=== PATIENT | female | born 1940 | race Caucasian/White ===

== ENCOUNTER 2021-04-07 16:28 | Inpatient (IN) | payer OTHER ==
[~2021-04-07] VITALS: Ht 157.5 cm; Wt 72.6 kg
[~2021-04-07 16:28] MED LIST: ASPI-1197 PO; BENA5TAB40 PO; CHOL200074 PO; METF-444 PO; NAPR-1192 PO; OMEG300C3 PO; OXYB5TAB15 PO; PRAV40TA3 PO; TRAM300C3 PO
[2021-04-07 17:01] LABS: APPEARANCE,URINE Cloudy (CLEAR); BILIRUBIN,URINE Negative (NEGATIVE); COLOR,URINE Yellow (YELLOW); GLUCOSE, URINE (UA) >=1000 mg/dL (NEGATIVE); KETONES,URINE 15 mg/dL (NEGATIVE); LEUKOCYTE ESTERASE ,URINE Moderate (NEGATIVE); NITRATE,URINE Positive (NEGATIVE); OCCULT BLOOD,URINE Moderate (NEGATIVE); PH,URINE 5.5 (5.0-8.0); PROTEIN,URINE Trace mg/dL (NEGATIVE); UROBILINOGEN,URINE 0.2 mg/dL (0.2-1.0)
[2021-04-07 17:16] LABS: BASOPHILS % (AUTO) 0.3 % (0.0-5.0); EOSINOPHILS % (AUTO) 1.3 % (0.0-8.0); HEMATOCRIT 38.5 % (36-48); LYMPHOCYTES % (AUTO) 6.2 % (21.0-51.0); MEAN CORPUSCULAR HEMOGLOBIN 26.8 pg (27.0-33.0); MEAN CORPUSCULAR HGB CONC 31.4 g/dL (32.0-36.0); MEAN CORPUSCULAR VOLUME 85.4 fL (79-99); MONOCYTES % (AUTO) 0.7 % (3.0-13.0); NEUTROPHILS % (AUTO) 90.1 % (40.0-77.0); PLATELET COUNT (AUTO) 361 K/uL (130-400); RED BLOOD CELL COUNT(AUTO) 4.51 MIL/uL (4.00-5.50); RED CELL DISTRIBUTION WIDTH 15.2 % (11.0-15.5); WHITE BLOOD COUNT (AUTO) 8.6 K/uL (4.8-10.8)
[2021-04-07 17:37] LABS: CREATININE 1.5 mg/dL (0.5-1.5); POTASSIUM 3.4 mmol/L (3.5-5.1)
[2021-04-07 17:45] LABS: BACTERIA,URINE Few /HPF (None Seen); SQUAMOUS EPITHELIAL CELL,UR Rare /HPF (0-2); WBC,URINE 26-50 /HPF (0-1)
[2021-04-07 17:46] LABS: ALBUMIN 3.1 g/dL (3.5-5.0); BILIRUBIN,TOTAL 0.7 mg/dL (0.2-1.0); TOTAL PROTEIN, SERUM 7.9 g/dL (6.0-8.3)
[2021-04-07] MEDS ORDERED: ONDANSETRON 4MG INJ IVP ONE (18:30)
[2021-04-07] MEDS ORDERED: CEFTRIAXONE 1G VIAL IVP ONE (18:30)
[2021-04-07] MEDS ORDERED: MORPHINE 4 MG SYG IV PRN (18:30)
[2021-04-07] MEDS ORDERED: 0.9%NACL 50ML 50 ML IV ONE (18:45)
[2021-04-07] MEDS ORDERED: ACETAMINOPHEN 325 MG TAB PO ONE (21:30)
[2021-04-07] MEDS ORDERED: ACETAMINOPHEN 325 MG TAB PO PRN (21:30)
[2021-04-07] MEDS ORDERED: MORPHINE 2 MG SYG IVP PRN (21:30)
[2021-04-07] MEDS ORDERED: ONDANSETRON 4MG INJ IVP PRN (21:30)
[2021-04-07] MEDS ORDERED: ZOSYN 3.375GM+NS 50ML 3.38 GM in 0.9%NACL 50ML 50 ML IV SCH (21:30)
[2021-04-07] MEDS: ZOSYN 3.375GM +NS 50ML IV SCH (21:50)
[2021-04-08] MEDS: MORPHINE 2 MG SYG IVP PRN ×2 (00:13→07:21)
[2021-04-08 04:08] LABS: BASOPHILS % (AUTO) 0.2 % (0.0-5.0); EOSINOPHILS % (AUTO) 2.1 % (0.0-8.0); HEMATOCRIT 35.2 % (36-48); LYMPHOCYTES % (AUTO) 5.3 % (21.0-51.0); MEAN CORPUSCULAR HEMOGLOBIN 26.8 pg (27.0-33.0); MEAN CORPUSCULAR HGB CONC 31.8 g/dL (32.0-36.0); MEAN CORPUSCULAR VOLUME 84.2 fL (79-99); MONOCYTES % (AUTO) 4.1 % (3.0-13.0); NEUTROPHILS % (AUTO) 87.5 % (40.0-77.0); NUCLEATED RED BLOOD CELLS 0.1 % (0.0-0.19); PLATELET COUNT (AUTO) 347 K/uL (130-400); RED BLOOD CELL COUNT(AUTO) 4.18 MIL/uL (4.00-5.50); RED CELL DISTRIBUTION WIDTH 15.4 % (11.0-15.5)
[2021-04-08 04:20] LABS: CREATININE 1.7 mg/dL (0.5-1.5); MAGNESIUM 1.5 mg/dL (1.80-2.40); POTASSIUM 4.4 mmol/L (3.5-5.1)
[2021-04-08] MEDS: INSULIN HUMULIN R 100 UNIT/ML 3ML SQ SCH ×4 (06:46→19:56)
[2021-04-08] MEDS ORDERED: 0.9%NACL 50ML 50 ML IV ONE (07:07)
[2021-04-08] MEDS: ONDANSETRON 4MG INJ IVP PRN ×2 (07:21→18:07)
[2021-04-08] MEDS ORDERED: INSULIN HUMULIN R 100 UNIT/ML 3ML SQ SCH (07:30)
[2021-04-08] MEDS ORDERED: MAGNESIUM 2GM PREMIX 50ML 50 ML IV PRN (08:00)
[2021-04-08] MEDS ORDERED: ENOXAPARIN SODIUM 30 MG/0.3 ML SQ SCH (09:00)
[2021-04-08] MEDS: ZOSYN 3.375GM +NS 50ML IV SCH ×2 (09:29→19:45)
[2021-04-08] MEDS: ENOXAPARIN SODIUM 30 MG/0.3 ML SQ SCH (10:44)
[2021-04-08] MEDS: KETOROLAC 15MG/ML VIAL (15MG/ML) IV SCH (10:45)
[2021-04-08 15:32] VITALS: BP 109/48
[2021-04-08 18:00] VITALS: BP 89/42
[2021-04-08 18:27] VITALS: BP 92/44
[2021-04-08] MEDS ORDERED: 0.9%NACL 1000ML 1,000 ML IV SCH (18:30)
[2021-04-08 19:58] VITALS: BP 110/62
[2021-04-08] MEDS: 0.9%NACL 1000ML 1,000 ML IV SCH (21:44)
[2021-04-08 23:57] VITALS: BP 104/45
[2021-04-09] MEDS: ONDANSETRON 4MG INJ IVP PRN (03:13)
[2021-04-09] MEDS: MORPHINE 2 MG SYG IVP PRN ×2 (03:16→14:04)
[2021-04-09 03:24] VITALS: BP 125/91
[2021-04-09 05:08] LABS: HEMATOCRIT 35.1 % (36-48); MEAN CORPUSCULAR HEMOGLOBIN 26.4 pg (27.0-33.0); MEAN CORPUSCULAR HGB CONC 30.5 g/dL (32.0-36.0); MEAN CORPUSCULAR VOLUME 86.7 fL (79-99); PLATELET COUNT (AUTO) 333 K/uL (130-400); RED BLOOD CELL COUNT(AUTO) 4.05 MIL/uL (4.00-5.50); RED CELL DISTRIBUTION WIDTH 15.6 % (11.0-15.5); WHITE BLOOD COUNT (AUTO) 13.6 K/uL (4.8-10.8)
[2021-04-09 05:44] LABS: CREATININE 1.6 mg/dL (0.5-1.5)
[2021-04-09] MEDS: 0.9%NACL 1000ML 1,000 ML IV SCH ×2 (06:16→15:39)
[2021-04-09 06:23] LABS: CREATININE 1.6 mg/dL (0.5-1.5); POTASSIUM 3.8 mmol/L (3.5-5.1)
[2021-04-09] MEDS: INSULIN HUMULIN R 100 UNIT/ML 3ML SQ SCH ×4 (06:48→20:00)
[2021-04-09 07:15] VITALS: BP 103/51
[2021-04-09] MEDS: ZOSYN 3.375GM +NS 50ML IV SCH ×2 (08:35→20:00)
[2021-04-09] MEDS: ENOXAPARIN SODIUM 30 MG/0.3 ML SQ SCH (08:35)
[2021-04-09] MEDS: KETOROLAC 15MG/ML VIAL (15MG/ML) IV SCH (11:00)
[2021-04-09 11:15] VITALS: BP 103/44
[2021-04-09 15:15] VITALS: BP 113/44
[2021-04-09 19:46] VITALS: BP 107/47
[2021-04-09 23:21] VITALS: BP 118/56
[2021-04-10] MEDS: 0.9%NACL 1000ML 1,000 ML IV SCH ×3 (01:17→22:20)
[2021-04-10 03:50] VITALS: BP 103/48
[2021-04-10 05:10] LABS: HEMATOCRIT 27.8 % (36-48); MEAN CORPUSCULAR HEMOGLOBIN 26.8 pg (27.0-33.0); MEAN CORPUSCULAR HGB CONC 31.3 g/dL (32.0-36.0); MEAN CORPUSCULAR VOLUME 85.5 fL (79-99); RED BLOOD CELL COUNT(AUTO) 3.25 MIL/uL (4.00-5.50); RED CELL DISTRIBUTION WIDTH 15.7 % (11.0-15.5); WHITE BLOOD COUNT (AUTO) 9.4 K/uL (4.8-10.8)
[2021-04-10 05:27] LABS: ALBUMIN 1.8 g/dL (3.5-5.0); BILIRUBIN,TOTAL 0.3 mg/dL (0.2-1.0); CREATININE 1.6 mg/dL (0.5-1.5); MAGNESIUM 1.8 mg/dL (1.80-2.40); POTASSIUM 3.9 mmol/L (3.5-5.1); TOTAL PROTEIN, SERUM 5.7 g/dL (6.0-8.3)
[2021-04-10] MEDS: INSULIN HUMULIN R 100 UNIT/ML 3ML SQ SCH ×4 (06:46→20:11)
[2021-04-10 07:15] VITALS: BP 148/76
[2021-04-10] MEDS: ACETAMINOPHEN 325 MG TAB PO PRN ×2 (07:35→14:59)
[2021-04-10] MEDS: ENOXAPARIN SODIUM 30 MG/0.3 ML SQ SCH (07:35)
[2021-04-10] MEDS: ZOSYN 3.375GM +NS 50ML IV SCH ×2 (09:50→20:05)
[2021-04-10] MEDS: KETOROLAC 15MG/ML VIAL (15MG/ML) IV SCH (11:00)
[2021-04-10 11:15] VITALS: BP 122/50
[2021-04-10 15:15] VITALS: BP 105/54
[2021-04-10] MEDS: MORPHINE 2 MG SYG IVP PRN (18:29)
[2021-04-10 20:07] VITALS: BP 96/52
[2021-04-10 23:30] VITALS: BP 124/72
[2021-04-11] MEDS: MORPHINE 2 MG SYG IVP PRN ×3 (02:25→20:51)
[2021-04-11 04:13] VITALS: BP 128/68
[2021-04-11] MEDS: INSULIN HUMULIN R 100 UNIT/ML 3ML SQ SCH ×4 (05:36→21:00)
[2021-04-11 08:00] VITALS: BP 125/87
[2021-04-11] MEDS: ZOSYN 3.375GM +NS 50ML IV SCH ×2 (10:24→20:51)
[2021-04-11] MEDS: 0.9%NACL 1000ML 1,000 ML IV SCH ×2 (10:25→19:00)
[2021-04-11] MEDS: ENOXAPARIN SODIUM 30 MG/0.3 ML SQ SCH (10:25)
[2021-04-11] MEDS: KETOROLAC 15MG/ML VIAL (15MG/ML) IV SCH (11:00)
[2021-04-11 11:57] VITALS: BP 107/65
[2021-04-11 16:00] VITALS: BP 115/56
[2021-04-11 20:00] VITALS: BP 121/55
[2021-04-12] VITALS (15 sets, daily range): BP systolic 113–149; BP diastolic 61–98
[2021-04-12] MEDS ORDERED: METOPROLOL TARTRATE 1 MG/ML 5ML VIAL IV ONE (01:58)
[2021-04-12] MEDS ORDERED: LORAZEPAM 2 MG/ML 1 ML VIAL ONE (02:01)
[2021-04-12 02:09] LABS: BASOPHILS % (AUTO) 0.7 % (0.0-5.0); EOSINOPHILS % (AUTO) 0.6 % (0.0-8.0); LYMPHOCYTES % (AUTO) 45.2 % (21.0-51.0); MEAN CORPUSCULAR HEMOGLOBIN 26.7 pg (27.0-33.0); MEAN CORPUSCULAR HGB CONC 29.7 g/dL (32.0-36.0); MEAN CORPUSCULAR VOLUME 89.7 fL (79-99); MONOCYTES % (AUTO) 4.2 % (3.0-13.0); NEUTROPHILS % (AUTO) 45.4 % (40.0-77.0); NUCLEATED RED BLOOD CELLS 0.2 % (0.0-0.19); PLATELET COUNT (AUTO) 316 K/uL (130-400); RED CELL DISTRIBUTION WIDTH 16.1 % (11.0-15.5); WHITE BLOOD COUNT (AUTO) 18.9 K/uL (4.8-10.8)
[2021-04-12 02:23] LABS: CREATININE 1.7 mg/dL (0.5-1.5); POTASSIUM 3.9 mmol/L (3.5-5.1)
[2021-04-12 02:27] LABS: ABG HCO3 11.2 mmol/L (21.0-28.0); ABG OXYGEN SATURATION 86.6 % (95.0-99.0); ABG PCO2 31 mmHg (32-45)
[2021-04-12] MEDS ORDERED: DILTIAZEM 25MG INJ IVP ONE (02:36)
[2021-04-12] MEDS ORDERED: 0.9%NACL 100ML 100 ML ONE (02:58)
[2021-04-12] MEDS ORDERED: DILTIAZEM 25MG INJ IVP PRN (03:00)
[2021-04-12] MEDS ORDERED: DILTIAZEM 125 MG/25 ML INJ 125 MG in 0.9%NACL 100ML 100 ML IV PRN (03:00)
[2021-04-12] MEDS ORDERED: ENOXAPARIN SODIUM 80 MG/0.8 ML SQ SCH (03:30)
[2021-04-12] MEDS ORDERED: SODIUM BICARB 50MEQ 50ML VIAL IV ONE (03:30)
[2021-04-12] MEDS: 0.9%NACL 1000ML 1,000 ML IV SCH (03:50)
[2021-04-12 06:29] LABS: ABG BASE EXCESS -3.7 mmol/L (-2.0-3.0); ABG HCO3 18.6 mmol/L (21.0-28.0); ABG PCO2 28 mmHg (32-45)
[2021-04-12] MEDS: KETOROLAC 15MG/ML VIAL (15MG/ML) IV SCH (07:58)
[2021-04-12] MEDS: ZOSYN 3.375GM +NS 50ML IV SCH (09:55)
[2021-04-12] MEDS: INSULIN HUMULIN R 100 UNIT/ML 3ML SQ SCH ×4 (09:56→21:00)
[2021-04-12] MEDS: METOPROLOL TARTRATE 50 MG TAB PO SCH ×2 (12:03→22:32)
[2021-04-12] MEDS ORDERED: LEVOFLOXACIN 500 MG/D5W 100 ML 100 ML IV SCH (12:30)
[2021-04-12] MEDS ORDERED: CEFTRIAXONE 2GM VIAL IVP SCH (14:30)
[2021-04-12] MEDS ORDERED: FUROSEMIDE 40MG VIAL IV ONE (14:30)
[2021-04-12] MEDS ORDERED: KCL 20 MEQ ERTAB PO ONE (15:00)
[2021-04-12 15:12] LABS: MAGNESIUM 1.7 mg/dL (1.80-2.40); PHOSPHORUS 2.9 mg/dL (2.5-4.9)
[2021-04-12 16:06] LABS: ABG BASE EXCESS -2.6 mmol/L (-2.0-3.0); ABG HCO3 19.4 mmol/L (21.0-28.0); ABG OXYGEN SATURATION 98.5 % (95.0-99.0); ABG PCO2 26 mmHg (32-45)
[2021-04-12] MEDS: MAGNESIUM 2GM PREMIX 50ML 50 ML IV SCH (16:23)
[2021-04-12] MEDS: IPRATROPIUM 0.5 MG/2.5 ML INH IH SCH ×2 (19:04→23:52)
[2021-04-13] MEDS: KETOROLAC 15MG/ML VIAL (15MG/ML) IV SCH (01:09)
[2021-04-13 04:42] LABS: INR 1.06 (0.85-1.15); PROTHROMBIN TIME 11.5 SEC (9.6-11.6)
[2021-04-13 04:43] LABS: PARTIAL THROMBOPLASTIN TIME 26.8 SEC (26.3-35.5)
[2021-04-13 04:44] LABS: BASOPHILS % (AUTO) 0.5 % (0.0-5.0); EOSINOPHILS % (AUTO) 0.2 % (0.0-8.0); LYMPHOCYTES % (AUTO) 17.1 % (21.0-51.0); MEAN CORPUSCULAR HEMOGLOBIN 26.2 pg (27.0-33.0); MEAN CORPUSCULAR HGB CONC 30.7 g/dL (32.0-36.0); MEAN CORPUSCULAR VOLUME 85.4 fL (79-99); MONOCYTES % (AUTO) 8.7 % (3.0-13.0); NEUTROPHILS % (AUTO) 68.7 % (40.0-77.0); NUCLEATED RED BLOOD CELLS 0.3 % (0.0-0.19); PLATELET COUNT (AUTO) 287 K/uL (130-400); RED BLOOD CELL COUNT(AUTO) 3.28 MIL/uL (4.00-5.50); RED CELL DISTRIBUTION WIDTH 16.3 % (11.0-15.5); WHITE BLOOD COUNT (AUTO) 12.1 K/uL (4.8-10.8)
[2021-04-13 04:49] LABS: ALBUMIN 1.8 g/dL (3.5-5.0); BILIRUBIN,TOTAL 0.3 mg/dL (0.2-1.0); CREATININE 1.4 mg/dL (0.5-1.5); POTASSIUM 3.6 mmol/L (3.5-5.1); TOTAL PROTEIN, SERUM 6.1 g/dL (6.0-8.3)
[2021-04-13 04:54] VITALS: BP 102/53
[2021-04-13] MEDS: IPRATROPIUM 0.5 MG/2.5 ML INH IH SCH ×4 (06:42→23:27)
[2021-04-13] MEDS: INSULIN HUMULIN R 100 UNIT/ML 3ML SQ SCH ×4 (06:48→21:09)
[2021-04-13 07:59] VITALS: BP 120/64
[2021-04-13] MEDS: METOPROLOL TARTRATE 50 MG TAB PO SCH ×2 (11:38→21:01)
[2021-04-13] MEDS: CEFTRIAXONE 2GM VIAL IVP SCH (11:39)
[2021-04-13 12:00] VITALS: BP 130/72
[2021-04-13] MEDS ORDERED: LEVOFLOXACIN 250 MG/D5W 50ML 50 ML IVPB SCH (12:30)
[2021-04-13 16:00] VITALS: BP 113/62
[2021-04-13 20:53] VITALS: BP 127/44
[2021-04-13] MEDS: ENOXAPARIN SODIUM 80 MG/0.8 ML SQ SCH (21:02)
[2021-04-13] MEDS ORDERED: SODIUM CHLORIDE 7% INHALATION 4 ML VIAL.NEB IH ONE (22:58)
[2021-04-14] VITALS (7 sets, daily range): BP systolic 113–128; BP diastolic 52–65
[2021-04-14] MEDS: INSULIN HUMULIN R 100 UNIT/ML 3ML SQ SCH ×4 (05:50→20:52)
[2021-04-14] MEDS ORDERED: SODIUM CHLORIDE 3% FOR INHALATION 4 ML/AMP VIAL.NEB IH ONE ×2 (06:18→18:53)
[2021-04-14] MEDS: IPRATROPIUM 0.5 MG/2.5 ML INH IH SCH ×3 (07:03→18:59)
[2021-04-14] MEDS: CEFTRIAXONE 2GM VIAL IVP SCH (08:26)
[2021-04-14] MEDS: METOPROLOL TARTRATE 50 MG TAB PO SCH ×2 (08:26→20:41)
[2021-04-14 09:03] LABS: HEMATOCRIT 29.5 % (36-48); MEAN CORPUSCULAR HEMOGLOBIN 26.2 pg (27.0-33.0); MEAN CORPUSCULAR HGB CONC 30.8 g/dL (32.0-36.0); NUCLEATED RED BLOOD CELLS 0.7 % (0.0-0.19); PLATELET COUNT (AUTO) 345 K/uL (130-400); RED BLOOD CELL COUNT(AUTO) 3.47 MIL/uL (4.00-5.50); RED CELL DISTRIBUTION WIDTH 16.8 % (11.0-15.5); WHITE BLOOD COUNT (AUTO) 9.9 K/uL (4.8-10.8)
[2021-04-14] MEDS ORDERED: FUROSEMIDE 40MG VIAL IV SCH (09:28)
[2021-04-14] MEDS ORDERED: CLOPIDOGREL 300MG TAB PO SCH (09:29)
[2021-04-14 09:46] LABS: BAND NEUTROPHILS % (MANUAL) 1 % (0-2); EOSINOPHILS % (MANUAL) 1 % (1-6); LYMPHOCYTES % (MANUAL) 21 % (22-44); MAN.DIFF COMMENT-IMPRESSION MANUAL DIFFERENTIAL; MONOCYTES % (MANUAL) 6 % (2-9); PLATELET MORPHOLOGY COMMENT ADEQUATE; SEGMENTED NEUTROPHILS % 71 % (40-70)
[2021-04-14] MEDS: ASPIRIN 81 MG EC TAB PO SCH (11:52)
[2021-04-14] MEDS: ENOXAPARIN SODIUM 80 MG/0.8 ML SQ SCH (20:46)
[2021-04-15] MEDS: IPRATROPIUM 0.5 MG/2.5 ML INH IH SCH ×4 (00:45→19:18)
[2021-04-15 03:06] VITALS: BP 118/65
[2021-04-15 04:51] LABS: CREATININE 1.4 mg/dL (0.5-1.5)
[2021-04-15] MEDS ORDERED: METOPROLOL TARTRATE 1 MG/ML 5ML VIAL IV ONE (05:00)
[2021-04-15] MEDS: METOPROLOL TARTRATE 1 MG/ML 5ML VIAL IV SCH ×2 (05:10→05:15)
[2021-04-15 05:23] LABS: POTASSIUM 2.8 mmol/L (3.5-5.1)
[2021-04-15] MEDS: INSULIN HUMULIN R 100 UNIT/ML 3ML SQ SCH ×4 (05:54→21:00)
[2021-04-15] MEDS ORDERED: POTASSIUM CHLORIDE 20MEQ/100ML 100 ML IV PRN ×2 (06:00)
[2021-04-15] MEDS ORDERED: LIDOCAINE HCL-MPF 1% 2ML VIAL IV PRN ×2 (06:00)
[2021-04-15] MEDS ORDERED: KCL 20 MEQ ERTAB PO PRN (06:00)
[2021-04-15 08:00] VITALS: BP 117/73
[2021-04-15] MEDS: METOPROLOL TARTRATE 50 MG TAB PO SCH ×3 (09:38→20:16)
[2021-04-15] MEDS: ASPIRIN 81 MG EC TAB PO SCH (09:38)
[2021-04-15] MEDS: MAGNESIUM 2GM PREMIX 50ML 50 ML IV SCH (09:38)
[2021-04-15] MEDS: CEFTRIAXONE 2GM VIAL IVP SCH (09:39)
[2021-04-15] MEDS: CLOPIDOGREL 75MG TAB PO SCH (09:40)
[2021-04-15] MEDS ORDERED: LORAZEPAM 2 MG/ML 1 ML VIAL IM SCH (11:30)
[2021-04-15] MEDS: POTASSIUM CHLORIDE 10% ELIXIR 20 MEQ/15 ML UDCUP PO PRN ×5 (11:43→20:19)
[2021-04-15 11:45] VITALS: BP 98/59
[2021-04-15 16:00] VITALS: BP 127/79
[2021-04-15 20:00] VITALS: BP 112/66
[2021-04-15 20:15] VITALS: BP 107/56
[2021-04-15] MEDS: ENOXAPARIN SODIUM 80 MG/0.8 ML SQ SCH (20:17)
[2021-04-15 23:47] LABS: POTASSIUM 4.3 mmol/L (3.5-5.1)
[2021-04-16] VITALS: BP 121/67
[2021-04-16 04:00] VITALS: BP 137/57
[2021-04-16 05:20] LABS: HEMATOCRIT 29.3 % (36-48); MEAN CORPUSCULAR HEMOGLOBIN 26.1 pg (27.0-33.0); MEAN CORPUSCULAR HGB CONC 30.4 g/dL (32.0-36.0); MEAN CORPUSCULAR VOLUME 85.9 fL (79-99); NUCLEATED RED BLOOD CELLS 0.3 % (0.0-0.19); RED BLOOD CELL COUNT(AUTO) 3.41 MIL/uL (4.00-5.50); WHITE BLOOD COUNT (AUTO) 11.5 K/uL (4.8-10.8)
[2021-04-16 05:46] LABS: MAGNESIUM 1.9 mg/dL (1.80-2.40); POTASSIUM 4.1 mmol/L (3.5-5.1)
[2021-04-16] MEDS: INSULIN HUMULIN R 100 UNIT/ML 3ML SQ SCH ×4 (06:13→21:27)
[2021-04-16] MEDS: MAGNESIUM 2GM PREMIX 50ML 50 ML IV SCH (06:15)
[2021-04-16] MEDS: IPRATROPIUM 0.5 MG/2.5 ML INH IH SCH ×4 (06:34→23:30)
[2021-04-16 08:00] VITALS: BP 130/78
[2021-04-16] MEDS: CEFTRIAXONE 2GM VIAL IVP SCH (09:27)
[2021-04-16] MEDS: METOPROLOL TARTRATE 50 MG TAB PO SCH ×3 (09:28→21:14)
[2021-04-16] MEDS: CLOPIDOGREL 75MG TAB PO SCH (09:28)
[2021-04-16] MEDS: ASPIRIN 81 MG EC TAB PO SCH (09:28)
[2021-04-16] MEDS ORDERED: AMIODARONE 900MG VIAL 900 MG in DEXTROSE 5%-WATER 500 ML IV SCH (11:30)
[2021-04-16] MEDS ORDERED: AMIODARONE 900MG VIAL 150 MG in DEXTROSE 5%-WATER 100 ML IV SCH (11:30)
[2021-04-16 12:00] VITALS: BP 122/64
[2021-04-16] MEDS: FUROSEMIDE 40MG VIAL IV SCH ×2 (12:04→21:14)
[2021-04-16 16:00] VITALS: BP 117/61
[2021-04-16 20:00] VITALS: BP 145/55
[2021-04-16] MEDS: ENOXAPARIN SODIUM 80 MG/0.8 ML SQ SCH (21:15)
[2021-04-17] VITALS: BP 112/58
[2021-04-17 04:00] VITALS: BP 119/62
[2021-04-17 05:15] LABS: MEAN CORPUSCULAR HEMOGLOBIN 26.3 pg (27.0-33.0); MEAN CORPUSCULAR VOLUME 84.7 fL (79-99); NUCLEATED RED BLOOD CELLS 0.6 % (0.0-0.19); POTASSIUM 3.7 mmol/L (3.5-5.1); RED BLOOD CELL COUNT(AUTO) 3.54 MIL/uL (4.00-5.50); RED CELL DISTRIBUTION WIDTH 16.9 % (11.0-15.5); WHITE BLOOD COUNT (AUTO) 9.8 K/uL (4.8-10.8)
[2021-04-17] MEDS: INSULIN HUMULIN R 100 UNIT/ML 3ML SQ SCH ×4 (05:46→21:00)
[2021-04-17] MEDS: IPRATROPIUM 0.5 MG/2.5 ML INH IH SCH ×4 (06:27→23:29)
[2021-04-17 07:29] VITALS: BP 111/45
[2021-04-17] MEDS: ASPIRIN 81 MG EC TAB PO SCH (09:09)
[2021-04-17] MEDS: METOPROLOL TARTRATE 50 MG TAB PO SCH ×2 (09:09→21:45)
[2021-04-17] MEDS: AMIODARONE 200 MG TABLET PO SCH (09:09)
[2021-04-17] MEDS: CEFTRIAXONE 2GM VIAL IVP SCH (09:10)
[2021-04-17] MEDS: FUROSEMIDE 40MG VIAL IV SCH ×2 (09:10→21:44)
[2021-04-17] MEDS: CLOPIDOGREL 75MG TAB PO SCH (09:10)
[2021-04-17] MEDS: POTASSIUM CHLORIDE 10% ELIXIR 20 MEQ/15 ML UDCUP PO PRN ×2 (09:11→11:10)
[2021-04-17 11:37] VITALS: BP 107/51
[2021-04-17] MEDS: SPIRONOLACTONE 25 MG TAB PO SCH (13:31)
[2021-04-17 15:55] VITALS: BP 131/64
[2021-04-17 20:00] VITALS: BP 128/48
[2021-04-17] MEDS: ENOXAPARIN SODIUM 80 MG/0.8 ML SQ SCH (21:44)
[2021-04-18] VITALS (7 sets, daily range): BP systolic 95–124; BP diastolic 35–66
[2021-04-18 04:44] LABS: INR 1.06 (0.85-1.15); PROTHROMBIN TIME 11.5 SEC (9.6-11.6)
[2021-04-18] MEDS: INSULIN HUMULIN R 100 UNIT/ML 3ML SQ SCH ×4 (05:53→21:33)
[2021-04-18] MEDS: IPRATROPIUM 0.5 MG/2.5 ML INH IH SCH ×3 (06:50→18:59)
[2021-04-18] MEDS: CEFTRIAXONE 2GM VIAL IVP SCH (09:14)
[2021-04-18] MEDS: CLOPIDOGREL 75MG TAB PO SCH (09:15)
[2021-04-18] MEDS: SPIRONOLACTONE 25 MG TAB PO SCH (09:15)
[2021-04-18] MEDS: METOPROLOL TARTRATE 50 MG TAB PO SCH ×2 (09:16→21:32)
[2021-04-18] MEDS: LISINOPRIL 2.5 MG TABLET PO SCH (09:16)
[2021-04-18] MEDS: ASPIRIN 81 MG EC TAB PO SCH (09:16)
[2021-04-18] MEDS: AMIODARONE 200 MG TABLET PO SCH (09:16)
[2021-04-18 09:45] LABS: CREATININE 1.1 mg/dL (0.5-1.5); POTASSIUM 3.5 mmol/L (3.5-5.1)
[2021-04-18 09:46] LABS: MAGNESIUM 1.6 mg/dL (1.80-2.40)
[2021-04-18] MEDS: MAGNESIUM 2GM PREMIX 50ML 50 ML IV SCH (10:48)
[2021-04-18] MEDS: ENOXAPARIN SODIUM 80 MG/0.8 ML SQ SCH (21:32)
[2021-04-19] MEDS: IPRATROPIUM 0.5 MG/2.5 ML INH IH SCH ×4 (00:34→19:30)
[2021-04-19] MEDS: ACETAMINOPHEN 325 MG TAB PO PRN ×2 (01:05→21:32)
[2021-04-19 03:49] VITALS: BP 102/44
[2021-04-19 04:34] LABS: HEMATOCRIT 29.1 % (36-48); MEAN CORPUSCULAR HEMOGLOBIN 26.2 pg (27.0-33.0); MEAN CORPUSCULAR HGB CONC 30.6 g/dL (32.0-36.0); MEAN CORPUSCULAR VOLUME 85.6 fL (79-99); RED BLOOD CELL COUNT(AUTO) 3.4 MIL/uL (4.00-5.50); RED CELL DISTRIBUTION WIDTH 17.8 % (11.0-15.5); WHITE BLOOD COUNT (AUTO) 8.7 K/uL (4.8-10.8)
[2021-04-19 05:09] LABS: CREATININE 1.1 mg/dL (0.5-1.5); POTASSIUM 3.6 mmol/L (3.5-5.1)
[2021-04-19] MEDS: INSULIN HUMULIN R 100 UNIT/ML 3ML SQ SCH ×4 (06:11→21:25)
[2021-04-19 07:00] VITALS: BP 134/71
[2021-04-19] MEDS: CLOPIDOGREL 75MG TAB PO SCH (10:06)
[2021-04-19] MEDS: AMIODARONE 200 MG TABLET PO SCH (10:06)
[2021-04-19] MEDS: MAGNESIUM CHLORIDE 70 MG TABLET.SA PO SCH (10:06)
[2021-04-19] MEDS: LISINOPRIL 2.5 MG TABLET PO SCH (10:06)
[2021-04-19] MEDS: ASPIRIN 81 MG EC TAB PO SCH (10:06)
[2021-04-19] MEDS: METOPROLOL TARTRATE 50 MG TAB PO SCH ×2 (10:06→21:21)
[2021-04-19] MEDS: SPIRONOLACTONE 25 MG TAB PO SCH (10:06)
[2021-04-19] MEDS: CEFTRIAXONE 2GM VIAL IVP SCH ×2 (10:06→10:07)
[2021-04-19] MEDS: KCL 20 MEQ ERTAB PO SCH (10:07)
[2021-04-19 11:00] VITALS: BP 112/50
[2021-04-19] MEDS ORDERED: FENTANYL CITRATE PF 50 MCG/1 ML 2ML VIAL ONE (13:35)
[2021-04-19] MEDS ORDERED: LIDOCAINE HCL 1% MDV 50ML VIAL ONE (13:35)
[2021-04-19] MEDS ORDERED: MIDAZOLAM HCL 1 MG/ML 2ML VIAL ONE (13:35)
[2021-04-19] MEDS ORDERED: IODIXANOL 320 MG/ML 100 ML VIAL ONE (13:36)
[2021-04-19] MEDS: FUROSEMIDE 20 MG TABLET PO SCH (15:48)
[2021-04-19 16:00] VITALS: BP 129/57
[2021-04-19] MEDS: ENOXAPARIN SODIUM 80 MG/0.8 ML SQ SCH (21:21)
[2021-04-20] VITALS: BP 120/51
[2021-04-20] MEDS: IPRATROPIUM 0.5 MG/2.5 ML INH IH SCH ×4 (01:01→19:04)
[2021-04-20 03:37] LABS: CREATININE 1.1 mg/dL (0.5-1.5); POTASSIUM 4.8 mmol/L (3.5-5.1)
[2021-04-20 04:00] VITALS: BP 110/53
[2021-04-20] MEDS: INSULIN HUMULIN R 100 UNIT/ML 3ML SQ SCH ×4 (06:18→20:57)
[2021-04-20 08:00] VITALS: BP 118/57
[2021-04-20] MEDS: CEFTRIAXONE 2GM VIAL IVP SCH (09:44)
[2021-04-20] MEDS: MAGNESIUM CHLORIDE 70 MG TABLET.SA PO SCH (09:45)
[2021-04-20] MEDS: LISINOPRIL 2.5 MG TABLET PO SCH (09:45)
[2021-04-20] MEDS: METOPROLOL TARTRATE 50 MG TAB PO SCH ×2 (09:46→20:50)
[2021-04-20] MEDS: ASPIRIN 81 MG EC TAB PO SCH (09:46)
[2021-04-20] MEDS: KCL 20 MEQ ERTAB PO SCH (09:46)
[2021-04-20] MEDS: AMIODARONE 200 MG TABLET PO SCH (09:46)
[2021-04-20] MEDS: SPIRONOLACTONE 25 MG TAB PO SCH (09:46)
[2021-04-20] MEDS: FUROSEMIDE 20 MG TABLET PO SCH (09:46)
[2021-04-20 12:00] VITALS: BP 116/62
[2021-04-20 16:00] VITALS: BP 122/48
[2021-04-20 20:00] VITALS: BP 122/49
[2021-04-20] MEDS: ENOXAPARIN SODIUM 80 MG/0.8 ML SQ SCH (20:50)
[2021-04-21] VITALS: BP 126/61
[2021-04-21] MEDS: IPRATROPIUM 0.5 MG/2.5 ML INH IH SCH ×5 (00:35→23:43)
[2021-04-21 04:00] VITALS: BP 123/59
[2021-04-21] MEDS: ACETAMINOPHEN 325 MG TAB PO PRN (04:53)
[2021-04-21] MEDS: INSULIN HUMULIN R 100 UNIT/ML 3ML SQ SCH ×4 (06:51→21:07)
[2021-04-21] MEDS: SPIRONOLACTONE 25 MG TAB PO SCH (07:50)
[2021-04-21] MEDS: LISINOPRIL 2.5 MG TABLET PO SCH (07:50)
[2021-04-21] MEDS: CEFTRIAXONE 2GM VIAL IVP SCH (07:51)
[2021-04-21] MEDS: KCL 20 MEQ ERTAB PO SCH (07:51)
[2021-04-21] MEDS: ASPIRIN 81 MG EC TAB PO SCH (07:51)
[2021-04-21] MEDS: AMIODARONE 200 MG TABLET PO SCH (07:51)
[2021-04-21] MEDS: METOPROLOL TARTRATE 50 MG TAB PO SCH ×3 (07:51→21:00)
[2021-04-21] MEDS: FUROSEMIDE 20 MG TABLET PO SCH (07:51)
[2021-04-21] MEDS: MAGNESIUM CHLORIDE 70 MG TABLET.SA PO SCH (07:52)
[2021-04-21 08:18] VITALS: BP 131/57
[2021-04-21 11:41] VITALS: BP 111/66
[2021-04-21 16:08] VITALS: BP 112/42
[2021-04-21 20:00] VITALS: BP 129/49
[2021-04-21] MEDS: ENOXAPARIN SODIUM 80 MG/0.8 ML SQ SCH (21:01)
[2021-04-22] VITALS (7 sets, daily range): BP systolic 97–144; BP diastolic 42–60
[2021-04-22] MEDS: INSULIN HUMULIN R 100 UNIT/ML 3ML SQ SCH ×4 (06:28→20:32)
[2021-04-22] MEDS: IPRATROPIUM 0.5 MG/2.5 ML INH IH SCH ×3 (07:14→19:01)
[2021-04-22] MEDS: CEFTRIAXONE 2GM VIAL IVP SCH (09:34)
[2021-04-22] MEDS: AMIODARONE 200 MG TABLET PO SCH (09:34)
[2021-04-22] MEDS: FUROSEMIDE 20 MG TABLET PO SCH (09:35)
[2021-04-22] MEDS: KCL 20 MEQ ERTAB PO SCH (09:35)
[2021-04-22] MEDS: LISINOPRIL 2.5 MG TABLET PO SCH (09:35)
[2021-04-22] MEDS: METOPROLOL TARTRATE 50 MG TAB PO SCH ×2 (09:36→20:31)
[2021-04-22] MEDS: ASPIRIN 81 MG EC TAB PO SCH (09:36)
[2021-04-22] MEDS: SPIRONOLACTONE 25 MG TAB PO SCH (09:36)
[2021-04-22] MEDS: MAGNESIUM CHLORIDE 70 MG TABLET.SA PO SCH (09:36)
[2021-04-22] MEDS: ACETAMINOPHEN 325 MG TAB PO PRN (13:16)
[2021-04-22] MEDS ORDERED: ACETAMINOPHEN WITH CODEINE 1 TAB TAB PO PRN (19:00)
[2021-04-22] MEDS: ENOXAPARIN SODIUM 80 MG/0.8 ML SQ SCH (20:30)
[2021-04-23] MEDS: IPRATROPIUM 0.5 MG/2.5 ML INH IH SCH ×5 (00:23→23:45)
[2021-04-23 03:29] VITALS: BP 113/52
[2021-04-23 04:41] LABS: HEMATOCRIT 29.4 % (36-48); MEAN CORPUSCULAR HEMOGLOBIN 26.4 pg (27.0-33.0); MEAN CORPUSCULAR HGB CONC 30.3 g/dL (32.0-36.0); MEAN CORPUSCULAR VOLUME 87.2 fL (79-99); PLATELET COUNT (AUTO) 463 K/uL (130-400); RED BLOOD CELL COUNT(AUTO) 3.37 MIL/uL (4.00-5.50); RED CELL DISTRIBUTION WIDTH 18.1 % (11.0-15.5)
[2021-04-23 04:47] LABS: CREATININE 1.2 mg/dL (0.5-1.5); MAGNESIUM 1.9 mg/dL (1.80-2.40); POTASSIUM 4.4 mmol/L (3.5-5.1)
[2021-04-23] MEDS: MAGNESIUM 2GM PREMIX 50ML 50 ML IV SCH (05:13)
[2021-04-23] MEDS: INSULIN HUMULIN R 100 UNIT/ML 3ML SQ SCH ×4 (06:19→20:13)
[2021-04-23 07:00] VITALS: BP 110/56
[2021-04-23] MEDS: CEFTRIAXONE 2GM VIAL IVP SCH (09:41)
[2021-04-23] MEDS: METOPROLOL TARTRATE 50 MG TAB PO SCH ×2 (09:42→20:10)
[2021-04-23] MEDS: FUROSEMIDE 20 MG TABLET PO SCH (09:42)
[2021-04-23] MEDS: ASPIRIN 81 MG EC TAB PO SCH (09:42)
[2021-04-23] MEDS: LISINOPRIL 2.5 MG TABLET PO SCH (09:42)
[2021-04-23] MEDS: AMIODARONE 200 MG TABLET PO SCH (09:42)
[2021-04-23] MEDS: SPIRONOLACTONE 25 MG TAB PO SCH (09:42)
[2021-04-23] MEDS: MAGNESIUM CHLORIDE 70 MG TABLET.SA PO SCH (09:43)
[2021-04-23] MEDS: KCL 20 MEQ ERTAB PO SCH (09:43)
[2021-04-23 11:00] VITALS: BP 118/56
[2021-04-23 16:00] VITALS: BP 110/46
[2021-04-23 19:53] VITALS: BP 103/50
[2021-04-23] MEDS: ENOXAPARIN SODIUM 80 MG/0.8 ML SQ SCH (20:11)
[2021-04-23 23:55] VITALS: BP 107/52
[2021-04-24 04:14] VITALS: BP 108/52
[2021-04-24] MEDS: INSULIN HUMULIN R 100 UNIT/ML 3ML SQ SCH ×4 (06:09→20:28)
[2021-04-24] MEDS: IPRATROPIUM 0.5 MG/2.5 ML INH IH SCH ×3 (07:09→18:42)
[2021-04-24 08:00] VITALS: BP 98/60
[2021-04-24] MEDS: SPIRONOLACTONE 25 MG TAB PO SCH (09:14)
[2021-04-24] MEDS: ASPIRIN 81 MG EC TAB PO SCH (09:14)
[2021-04-24] MEDS: KCL 20 MEQ ERTAB PO SCH (09:15)
[2021-04-24] MEDS: CEFTRIAXONE 2GM VIAL IVP SCH (09:15)
[2021-04-24] MEDS: MAGNESIUM CHLORIDE 70 MG TABLET.SA PO SCH (09:15)
[2021-04-24] MEDS: FUROSEMIDE 20 MG TABLET PO SCH (09:15)
[2021-04-24] MEDS: LISINOPRIL 2.5 MG TABLET PO SCH (09:15)
[2021-04-24] MEDS: METOPROLOL TARTRATE 50 MG TAB PO SCH ×2 (09:15→20:20)
[2021-04-24] MEDS: AMIODARONE 200 MG TABLET PO SCH (09:15)
[2021-04-24 12:24] VITALS: BP 96/50
[2021-04-24 16:30] VITALS: BP 130/80
[2021-04-24 20:00] VITALS: BP 113/57
[2021-04-24] MEDS: ENOXAPARIN SODIUM 80 MG/0.8 ML SQ SCH (20:20)
[2021-04-25] VITALS (8 sets, daily range): BP systolic 112–133; BP diastolic 49–66
[2021-04-25] MEDS: IPRATROPIUM 0.5 MG/2.5 ML INH IH SCH ×3 (00:37→13:00)
[2021-04-25] MEDS: INSULIN HUMULIN R 100 UNIT/ML 3ML SQ SCH ×4 (06:36→20:53)
[2021-04-25] MEDS: CEFTRIAXONE 2GM VIAL IVP SCH (09:35)
[2021-04-25] MEDS: SPIRONOLACTONE 25 MG TAB PO SCH (09:37)
[2021-04-25] MEDS: MAGNESIUM CHLORIDE 70 MG TABLET.SA PO SCH (09:37)
[2021-04-25] MEDS: LISINOPRIL 2.5 MG TABLET PO SCH (09:37)
[2021-04-25] MEDS: KCL 20 MEQ ERTAB PO SCH (09:37)
[2021-04-25] MEDS: AMIODARONE 200 MG TABLET PO SCH (09:38)
[2021-04-25] MEDS: METOPROLOL TARTRATE 50 MG TAB PO SCH ×2 (09:38→20:53)
[2021-04-25] MEDS: ASPIRIN 81 MG EC TAB PO SCH (09:38)
[2021-04-25] MEDS: FUROSEMIDE 20 MG TABLET PO SCH (09:38)
[2021-04-25 11:15] LABS: HEMATOCRIT 29.5 % (36-48); MEAN CORPUSCULAR HEMOGLOBIN 26.9 pg (27.0-33.0); MEAN CORPUSCULAR HGB CONC 30.2 g/dL (32.0-36.0); MEAN CORPUSCULAR VOLUME 89.1 fL (79-99); RED BLOOD CELL COUNT(AUTO) 3.31 MIL/uL (4.00-5.50); RED CELL DISTRIBUTION WIDTH 18.3 % (11.0-15.5)
[2021-04-25 11:27] LABS: CREATININE 1.1 mg/dL (0.5-1.5); POTASSIUM 4.7 mmol/L (3.5-5.1)
[2021-04-25 12:01] LABS: PROTHROMBIN TIME 10.9 SEC (9.6-11.6)
[2021-04-25] MEDS ORDERED: IPRATROPIUM 0.5 MG/2.5 ML INH IH PRN (16:30)
[2021-04-25] MEDS: ENOXAPARIN SODIUM 80 MG/0.8 ML SQ SCH (20:53)
[2021-04-26 03:13] VITALS: BP 110/56
[2021-04-26] MEDS: INSULIN HUMULIN R 100 UNIT/ML 3ML SQ SCH ×3 (06:17→21:25)
[2021-04-26 08:32] VITALS: BP 108/47
[2021-04-26] MEDS: FUROSEMIDE 20 MG TABLET PO SCH (09:14)
[2021-04-26] MEDS: CEFTRIAXONE 2GM VIAL IVP SCH (09:14)
[2021-04-26] MEDS: MAGNESIUM CHLORIDE 70 MG TABLET.SA PO SCH (09:14)
[2021-04-26] MEDS: AMIODARONE 200 MG TABLET PO SCH (09:16)
[2021-04-26] MEDS: SPIRONOLACTONE 25 MG TAB PO SCH (09:17)
[2021-04-26] MEDS: LISINOPRIL 2.5 MG TABLET PO SCH (09:17)
[2021-04-26] MEDS: ASPIRIN 81 MG EC TAB PO SCH (09:18)
[2021-04-26] MEDS: KCL 20 MEQ ERTAB PO SCH (09:23)
[2021-04-26] MEDS: METOPROLOL TARTRATE 50 MG TAB PO SCH ×2 (09:26→21:24)
[2021-04-26 12:28] VITALS: BP 101/40
[2021-04-26] MEDS ORDERED: LIDOCAINE HCL 1% MDV 50ML VIAL ONE (13:05)
[2021-04-26] MEDS ORDERED: IODIXANOL 320 MG/ML 100 ML VIAL ONE (13:05)
[2021-04-26 16:59] VITALS: BP 140/75
[2021-04-26 20:17] VITALS: BP 105/52
[2021-04-26] MEDS: ENOXAPARIN SODIUM 80 MG/0.8 ML SQ SCH (21:23)
[2021-04-26 23:47] VITALS: BP 117/61
[2021-04-27 03:54] VITALS: BP 134/57
[2021-04-27] MEDS: INSULIN HUMULIN R 100 UNIT/ML 3ML SQ SCH ×4 (07:00→21:13)
[2021-04-27 07:55] VITALS: BP 110/57
[2021-04-27] MEDS: METOPROLOL TARTRATE 50 MG TAB PO SCH ×2 (08:12→21:03)
[2021-04-27] MEDS: SPIRONOLACTONE 25 MG TAB PO SCH (08:12)
[2021-04-27] MEDS: AMIODARONE 200 MG TABLET PO SCH (08:12)
[2021-04-27] MEDS: FUROSEMIDE 20 MG TABLET PO SCH (08:12)
[2021-04-27] MEDS: LISINOPRIL 2.5 MG TABLET PO SCH (08:13)
[2021-04-27] MEDS: ASPIRIN 81 MG EC TAB PO SCH (08:13)
[2021-04-27] MEDS: KCL 20 MEQ ERTAB PO SCH (08:13)
[2021-04-27] MEDS: MAGNESIUM CHLORIDE 70 MG TABLET.SA PO SCH (08:32)
[2021-04-27 11:34] LABS: HEMATOCRIT 31.9 % (36-48); MEAN CORPUSCULAR HEMOGLOBIN 27.1 pg (27.0-33.0); MEAN CORPUSCULAR HGB CONC 30.7 g/dL (32.0-36.0); MEAN CORPUSCULAR VOLUME 88.4 fL (79-99); RED BLOOD CELL COUNT(AUTO) 3.61 MIL/uL (4.00-5.50); RED CELL DISTRIBUTION WIDTH 18.3 % (11.0-15.5); WHITE BLOOD COUNT (AUTO) 6.5 K/uL (4.8-10.8)
[2021-04-27 11:44] LABS: CREATININE 1.1 mg/dL (0.5-1.5); POTASSIUM 4.9 mmol/L (3.5-5.1)
[2021-04-27 11:53] VITALS: BP 110/60
[2021-04-27 15:21] VITALS: BP 110/60
[2021-04-27 16:43] VITALS: BP 126/63
[2021-04-27 20:28] VITALS: BP 100/53
[2021-04-27] MEDS: ENOXAPARIN SODIUM 80 MG/0.8 ML SQ SCH (21:05)
== END 2021-04-27 17:30 | DRG 871 ==
LOC: EDH 16:28 → EDHIP 21:20 → OBSVTOIN 21:20 → 3AH 04-08 16:33 → 4DH 04-12 03:02
PROVIDERS: ADMIT Internal Medicine Infectious Disease; ATTEND Internal Medicine Infectious Disease
PROC: 02HV33Z Insertion of Infusion Device into Superior Vena Cava, Percutaneous Approach (ICD-10-PCS; principal; 2021-04-20)
PROC: 5A09357 Assistance with Respiratory Ventilation, Less than 24 Consecutive Hours, Continuous Positive Airway Pressure (ICD-10-PCS; 2021-04-20)
DX: A41.50 Gram-negative sepsis, unspecified (principal); I50.21 Acute systolic (congestive) heart failure; G93.41 Metabolic encephalopathy; I21.4 Non-ST elevation (NSTEMI) myocardial infarction; N17.9 Acute kidney failure, unspecified; N20.2 Calculus of kidney with calculus of ureter; N13.6 Pyonephrosis; E87.6 Hypokalemia; E11.9 Type 2 diabetes mellitus without complications; R06.03 Acute respiratory distress; I11.0 Hypertensive heart disease with heart failure; E78.5 Hyperlipidemia, unspecified; B96.20 Unspecified Escherichia coli [E. coli] as the cause of diseases classified elsewhere; D64.9 Anemia, unspecified; E83.42 Hypomagnesemia; Z20.822 Contact with and (suspected) exposure to COVID-19; E66.9 Obesity, unspecified; E78.00 Pure hypercholesterolemia, unspecified; F03.90 Unspecified dementia, unspecified severity, without behavioral disturbance, psychotic disturbance, mood disturbance, and anxiety; I48.0 Paroxysmal atrial fibrillation; J44.9 Chronic obstructive pulmonary disease, unspecified; K57.30 Diverticulosis of large intestine without perforation or abscess without bleeding; Z68.29 Body mass index [BMI] 29.0-29.9, adult; Z79.02 Long term (current) use of antithrombotics/antiplatelets; Z79.82 Long term (current) use of aspirin; Z79.899 Other long term (current) drug therapy; Z90.710 Acquired absence of both cervix and uterus; Z87.440 Personal history of urinary (tract) infections; Z83.3 Family history of diabetes mellitus
CPT/HCPCS: 36415; 36430; 36600; 71045; 74176; 76770; 78582; 78700; 80048; 80053; 81001; 82435; 82550; 82565; 82803; 82947; 82948; 83036; 83605; 83735; 83880; 84100; 84132; 84295; 84484; 84520; 85018; 85025; 85027; 85378; 85610; 85730; 87040; 87077; 87088; 87186; 87635; 93005; 93306; 93356; 93970; 94640; 94660; 94664; 97039; A9540; A9558; A9562; C1894; C9803; G0378; J0282; J0696; J1644; J1650; J1815; J1885; J1940; J2060; J2250; J2270; J2405; J2543; J3010; J3475; J3490; J7060; Q9967